=== PATIENT | male | born 1955 | race Two or more races ===

== ENCOUNTER → 2017-09-10 | Emergency (ER) | payer OTHER ==
[~2017-09-10] VITALS: Ht 185.4 cm; Wt 95.3 kg
[~2017-09-10] MED LIST: AMLODIPINE BESY10 MG; ATENOLOL100 MG; CLONAZEPAM0.5 MG; KETO10TA2 PO; LEVAQUIN750 MG PO; LOSARTAN-HCTZ1 EAC2; MEDROL DOSE PACK PO; NORVASC10 MG; ORPH100T PO; PHENAGIL TABLE1 EACH PO; TOPROL XL200 MG; TRAMADOL HCL-AP1 TAB PO
== END | disposition home or self-care (01) ==
LOC: ER 09:56
DX: R42 Dizziness and giddiness (principal); R51 Headache

== ENCOUNTER 2018-10-11 08:26 | Outpatient (CLI) | payer OTHER | END 2018-10-11 09:19 | disposition home or self-care (01) | LOC: RAD 08:26 | DX: J44.9 Chronic obstructive pulmonary disease, unspecified (principal) ==

== ENCOUNTER 2018-10-11 08:29 | Outpatient (CLI) | payer OTHER | END 2018-10-11 13:52 | disposition home or self-care (01) | LOC: LAB 08:29 | DX: I10 Essential (primary) hypertension (principal); E11.9 Type 2 diabetes mellitus without complications; E03.8 Other specified hypothyroidism; E78.2 Mixed hyperlipidemia; M81.0 Age-related osteoporosis without current pathological fracture; N40.0 Benign prostatic hyperplasia without lower urinary tract symptoms; N52.9 Male erectile dysfunction, unspecified ==

== ENCOUNTER 2018-11-07 12:37 | Outpatient (CLI) | payer OTHER | END 2018-11-07 13:12 | disposition home or self-care (01) | LOC: NUCLEAR 12:37 | DX: M81.0 Age-related osteoporosis without current pathological fracture (principal) ==

== ENCOUNTER 2019-08-21 08:12 | Outpatient (CLI) | payer OTHER | END 2019-08-21 08:20 | disposition home or self-care (01) | LOC: LAB 08:12 | DX: E11.9 Type 2 diabetes mellitus without complications (principal); E03.8 Other specified hypothyroidism; E78.2 Mixed hyperlipidemia; N40.0 Benign prostatic hyperplasia without lower urinary tract symptoms; M81.0 Age-related osteoporosis without current pathological fracture; I10 Essential (primary) hypertension ==

== ENCOUNTER 2019-12-02 08:05 | Outpatient (CLI) | payer OTHER | END 2019-12-02 09:05 | disposition home or self-care (01) | LOC: LAB 08:05 | DX: I10 Essential (primary) hypertension (principal); E11.9 Type 2 diabetes mellitus without complications; E03.8 Other specified hypothyroidism; E78.2 Mixed hyperlipidemia ==

== ENCOUNTER → 2021-01-02 07:54 | Outpatient (CLI) | payer OTHER | END | disposition home or self-care (01) | LOC: LAB 07:54 | PROVIDERS: ATTEND Internal Medicine Cardiovascular Disease | DX: E78.2 Mixed hyperlipidemia (principal); I10 Essential (primary) hypertension; E11.9 Type 2 diabetes mellitus without complications; E03.9 Hypothyroidism, unspecified; Z12.11 Encounter for screening for malignant neoplasm of colon; E55.9 Vitamin D deficiency, unspecified; N40.0 Benign prostatic hyperplasia without lower urinary tract symptoms ==

== ENCOUNTER 2021-05-15 08:05 | Outpatient (CLI) | payer OTHER | END 2021-05-15 08:10 | disposition home or self-care (01) | LOC: LAB 08:05 | PROVIDERS: ATTEND Internal Medicine Cardiovascular Disease | DX: I10 Essential (primary) hypertension (principal); E11.9 Type 2 diabetes mellitus without complications; E03.8 Other specified hypothyroidism; E78.2 Mixed hyperlipidemia ==

== ENCOUNTER 2021-05-19 08:00 | Outpatient (CLI) | payer OTHER | END 2021-05-19 08:30 | disposition home or self-care (01) | LOC: PPH VACUNA 08:00 | PROVIDERS: ATTEND Emergency Medicine Pediatric Emergency Medicine | DX: Z23 Encounter for immunization (principal) ==

== ENCOUNTER 2021-11-17 08:00 | Outpatient (CLI) | payer OTHER | END 2021-11-17 08:30 | disposition home or self-care (01) | LOC: PPH VACUNA 08:00 | PROVIDERS: ATTEND Emergency Medicine Pediatric Emergency Medicine | DX: Z23 Encounter for immunization (principal) ==

== ENCOUNTER 2021-11-17 08:23 | Outpatient (CLI) | payer OTHER | END 2021-11-17 08:24 | disposition home or self-care (01) | LOC: LAB 08:23 | PROVIDERS: ATTEND Internal Medicine Cardiovascular Disease | DX: E11.9 Type 2 diabetes mellitus without complications (principal); I10 Essential (primary) hypertension; E03.9 Hypothyroidism, unspecified; E78.2 Mixed hyperlipidemia; Z12.11 Encounter for screening for malignant neoplasm of colon; E55.9 Vitamin D deficiency, unspecified; N40.0 Benign prostatic hyperplasia without lower urinary tract symptoms ==

== ENCOUNTER 2021-12-01 11:01 | Outpatient (CLI) | payer OTHER | END 2021-12-01 11:06 | disposition home or self-care (01) | LOC: RAD 11:01 | PROVIDERS: ATTEND Internal Medicine Cardiovascular Disease | DX: M12.9 Arthropathy, unspecified (principal); M48.48XA Fatigue fracture of vertebra, sacral and sacrococcygeal region, initial encounter for fracture ==

== ENCOUNTER 2022-09-09 09:02 | Outpatient (CLI) | payer OTHER ==
[~2022-09-09 09:02] MED LIST changes: +ATENOLOL100 MG PO; +CAPSAICIN42.5 GM TOP; +INDOMETHACIN50 MG PO; +ZOVIRAX800 MG PO
== END 2022-09-09 15:03 | disposition home or self-care (01) ==
LOC: LAB 09:02
PROVIDERS: ATTEND Internal Medicine Cardiovascular Disease
DX: I10 Essential (primary) hypertension (principal); E11.9 Type 2 diabetes mellitus without complications; E03.9 Hypothyroidism, unspecified; E78.2 Mixed hyperlipidemia; Z12.11 Encounter for screening for malignant neoplasm of colon; N40.0 Benign prostatic hyperplasia without lower urinary tract symptoms; M10.9 Gout, unspecified; M19.90 Unspecified osteoarthritis, unspecified site; D64.9 Anemia, unspecified

== ENCOUNTER 2022-11-02 12:18 | Outpatient (CLI) | payer OTHER | END 2022-11-02 12:24 | disposition home or self-care (01) | LOC: SONOGRAMA 12:18 | PROVIDERS: ATTEND Internal Medicine | DX: M25.511 Pain in right shoulder (principal); M25.512 Pain in left shoulder ==

== ENCOUNTER 2022-12-29 08:57 | Outpatient (CLI) | payer OTHER | END 2022-12-29 09:06 | disposition home or self-care (01) | LOC: RAD 08:57 | PROVIDERS: ATTEND Internal Medicine | DX: R94.5 Abnormal results of liver function studies (principal); M54.2 Cervicalgia; M25.571 Pain in right ankle and joints of right foot; M25.541 Pain in joints of right hand; M25.542 Pain in joints of left hand ==

== ENCOUNTER 2023-03-12 08:27 | Outpatient (CLI) | payer OTHER | END 2023-03-12 08:28 | disposition home or self-care (01) | LOC: LAB 08:27 | PROVIDERS: ATTEND Internal Medicine Cardiovascular Disease | DX: E78.2 Mixed hyperlipidemia (principal); I10 Essential (primary) hypertension; E11.9 Type 2 diabetes mellitus without complications ==

== ENCOUNTER → 2023-08-19 07:50 | Outpatient (CLI) | payer OTHER ==
[2023-08-19 08:30] LABS: HEMOGLOBIN 14.3 g/dL (13-16.00); MEAN CORPUSCULAR HGB CONC 34.1 g/dl (32.0-36.0); PLATELET COUNT 272 K/uL (150-450); RED BLOOD COUNT 4.61 M/uL (4.00-6.00)
[2023-08-19 09:21] LABS: ALBUMIN 3.6 gm/dL (3.4-5.0); BILIRUBIN TOTAL 0.55 mg/dL (0.3-1.2); CALCIUM 9.4 mg/dL (8.5-10.1); CHOL HDL RATIO 3.6 (0-5.0); CREATININE SERUM 1.18 mg/dL (0.70-1.30); GFR 61.21; GLOBULINA 3.4 G/DL (2.4-3.5); POTASSIUM 4.18 mEq/L (3.5-5.1); PROSTATIC SPECIFIC ANTIGEN 1.02 NG/ML (0.010-4.00); T4 TOTAL 10.76 UG/DL (4.5-12.1); TSH 1.44 uIU/mL (0.358-3.74)
[2023-08-19 12:15] LABS: T3 TOTAL 1.35 ng/ml (0.846-2.02); VITAMIN D3 25 HYDROXY 58.16 ng/ml (30-120)
[2023-08-19 14:33] LABS: ob NEGATIVE (NEGATIVE)
== END | disposition home or self-care (01) ==
LOC: LAB 07:50
PROVIDERS: ATTEND Internal Medicine Cardiovascular Disease
DX: I10 Essential (primary) hypertension (principal); E11.9 Type 2 diabetes mellitus without complications; E03.9 Hypothyroidism, unspecified; E78.2 Mixed hyperlipidemia; Z12.11 Encounter for screening for malignant neoplasm of colon; N40.0 Benign prostatic hyperplasia without lower urinary tract symptoms

== ENCOUNTER 2024-04-05 08:18 | Outpatient (CLI) | payer OTHER ==
[2024-04-05 09:16] LABS: HEMATOCRIT 40.1 % (39.0-48.0); HEMOGLOBIN 13.7 g/dL (13-16.00); MEAN CELL VOLUME 87.4 fL (80.0-100.00); MEAN CORPUSCULAR HGB CONC 34.3 g/dl (32.0-36.0); PLATELET COUNT 268 K/uL (150-450); RED BLOOD COUNT 4.58 M/uL (4.00-6.00); RED CELL DISTRIBUTION WIDTH 15.2 % (11.5-14.5)
[2024-04-05 09:22] LABS: PH,URINE 7.5 (5.0-8.0); URINE APPEARANCE Clear; URINE BILIRRUBIN Negative (NEGATIVE); URINE BLOOD Negative; URINE COLOR Yellow; URINE GLUCOSE Negative (NEGATIVE); URINE KETONE Negative (NEGATIVE); URINE LEUKOCYTE Negative; URINE NITRATE Negative; URINE PROTEIN Trace (NEGATIVE); URINE UROBILINOGEN 0.2 E.U./dl
[2024-04-05 09:31] LABS: URINE BACTERIA 0 uL (0.0-1933); URINE EPITHELIAL CELLS 0.4 uL (0.0-38.8); URINE RBC 1.6 uL (0.0-20.8); URINE WBC 0.4 uL (0.0-23.2)
[2024-04-05 10:05] LABS: CALCIUM 9.4 mg/dL (8.5-10.1); CHOL HDL RATIO 2.3 (0-5.0); CREATININE SERUM 1.14 mg/dL (0.70-1.30); GFR 63.69; POTASSIUM 3.92 mEq/L (3.5-5.1)
== END 2024-04-05 08:19 | disposition home or self-care (01) ==
LOC: LAB 08:18
PROVIDERS: ATTEND Internal Medicine Cardiovascular Disease
DX: E78.2 Mixed hyperlipidemia (principal); I10 Essential (primary) hypertension; E11.9 Type 2 diabetes mellitus without complications

== ENCOUNTER 2024-08-10 08:07 | Outpatient (CLI) | payer OTHER ==
[2024-08-10 08:52] LABS: HEMATOCRIT 38.8 % (39.0-48.0); HEMOGLOBIN 13.5 g/dL (13-16.00); MEAN CELL VOLUME 86.7 fL (80.0-100.00); MEAN CORPUSCULAR HEMOGLOBIN 30.2 pg (27.00-32.0); MEAN CORPUSCULAR HGB CONC 34.8 g/dl (32.0-36.0); PLATELET COUNT 270 K/uL (150-450); RED BLOOD COUNT 4.48 M/uL (4.00-6.00); RED CELL DISTRIBUTION WIDTH 15.1 % (11.5-14.5)
[2024-08-10 09:21] LABS: URINE APPEARANCE Clear; URINE BILIRRUBIN Negative (NEGATIVE); URINE BLOOD Negative; URINE COLOR Yellow; URINE GLUCOSE Negative (NEGATIVE); URINE KETONE Negative (NEGATIVE); URINE LEUKOCYTE Negative; URINE NITRATE Negative; URINE PROTEIN Trace (NEGATIVE); URINE UROBILINOGEN 0.2 E.U./dl
[2024-08-10 09:26] LABS: URINE RBC 2.2 uL (0.0-20.8)
[2024-08-10 09:43] LABS: URINE BACTERIA 1.2 uL (0.0-1933); URINE EPITHELIAL CELLS 0.9 uL (0.0-38.8); URINE WBC 0.4 uL (0.0-23.2)
[2024-08-10 10:04] LABS: CALCIUM 9.4 mg/dL (8.5-10.1); CHOL HDL RATIO 2.2 (0-5.0); CREATININE SERUM 1.13 mg/dL (0.70-1.30); GFR 64.34; POTASSIUM 4.13 mEq/L (3.5-5.1); T4 TOTAL 10.38 UG/DL (4.5-12.1); TSH 1.37 uIU/mL (0.358-3.74)
== END 2024-08-10 08:08 | disposition home or self-care (01) ==
LOC: LAB 08:07
PROVIDERS: ATTEND Internal Medicine Cardiovascular Disease
DX: E11.9 Type 2 diabetes mellitus without complications (principal); E03.9 Hypothyroidism, unspecified; E78.2 Mixed hyperlipidemia; I10 Essential (primary) hypertension

== ENCOUNTER → 2024-11-30 08:01 | Outpatient (CLI) | payer OTHER ==
[2024-11-30 08:48] LABS: HEMATOCRIT 38.9 % (39.0-48.0); HEMOGLOBIN 13.5 g/dL (13-16.00); MEAN CELL VOLUME 85.9 fL (80.0-100.00); MEAN CORPUSCULAR HEMOGLOBIN 29.7 pg (27.00-32.0); MEAN CORPUSCULAR HGB CONC 34.6 g/dl (32.0-36.0); PLATELET COUNT 286 K/uL (150-450); RED BLOOD COUNT 4.53 M/uL (4.00-6.00); RED CELL DISTRIBUTION WIDTH 14.6 % (11.5-14.5)
[2024-11-30 09:09] LABS: URINE APPEARANCE Clear; URINE BILIRRUBIN Negative (NEGATIVE); URINE BLOOD Negative; URINE COLOR Yellow; URINE GLUCOSE Negative (NEGATIVE); URINE KETONE Negative (NEGATIVE); URINE LEUKOCYTE Negative; URINE NITRATE Negative; URINE PROTEIN 30 (NEGATIVE); URINE UROBILINOGEN 0.2 E.U./dl
[2024-11-30 09:14] LABS: URINE BACTERIA 4.8 uL (0.0-1933)
[2024-11-30 09:33] LABS: URINE EPITHELIAL CELLS 0.1 uL (0.0-38.8); URINE RBC 1.3 uL (0.0-20.8); URINE WBC 0.1 uL (0.0-23.2)
[2024-11-30 09:39] LABS: CALCIUM 9.5 mg/dL (8.5-10.1); CHOL HDL RATIO 2.5 (0-5.0); CREATININE SERUM 1.15 mg/dL (0.70-1.30); GFR 62.87; POTASSIUM 3.68 mEq/L (3.5-5.1)
[2024-11-30 11:38] LABS: ob NEGATIVE (NEGATIVE)
== END | disposition home or self-care (01) ==
LOC: LAB 08:01
PROVIDERS: ATTEND Internal Medicine Cardiovascular Disease
DX: E11.9 Type 2 diabetes mellitus without complications (principal); I10 Essential (primary) hypertension; E03.9 Hypothyroidism, unspecified; E78.2 Mixed hyperlipidemia; D64.0 Hereditary sideroblastic anemia; Z12.11 Encounter for screening for malignant neoplasm of colon; N40.0 Benign prostatic hyperplasia without lower urinary tract symptoms; E55.9 Vitamin D deficiency, unspecified; M81.0 Age-related osteoporosis without current pathological fracture

== ENCOUNTER 2025-02-27 08:19 | Outpatient (CLI) | payer OTHER ==
[2025-02-27 08:55] LABS: BASO % 0.9 % (0.1-1.2); EOS # 0.87 (0.04-0.54); EOS % 8.7 % (0.7-7.0); LYMPH # 1.89 (1.18-3.74); LYMPH % 18.9 % (19.3-53.1); MEAN PLATELET VOLUME 10.60 fl (9.4-12.4); MONO # 1.05 (0.24-0.82); MONO % 10.5 % (4.7-12.5); NEUT # 6.05 (1.56-6.13); NEUT % 60.7 % (34.0-71.1); RED CELL DISTRIBUTION WIDTH 14.2 % (11.6-14.4)
[2025-02-27 09:35] LABS: URINE APPEARANCE Clear; URINE BILIRRUBIN Negative (NEGATIVE); URINE BLOOD Negative; URINE COLOR Yellow; URINE GLUCOSE Negative (NEGATIVE); URINE KETONE Negative (NEGATIVE); URINE LEUKOCYTE Negative; URINE NITRATE Negative; URINE UROBILINOGEN 0.2 E.U./dl
[2025-02-27 09:39] LABS: URINE BACTERIA 8.3 uL (0.0-1933); URINE EPITHELIAL CELLS 3.3 uL (0.0-38.8); URINE RBC 4.5 uL (0.0-20.8)
[2025-02-27 09:44] LABS: BUN CREA RATIO 19.0 (7.0-25.0); CHOL HDL RATIO 2.4 (0-5.0); CREATININE SERUM 1.24 mg/dL (0.70-1.30); GFR 57.63; GLUCOSE FASTING 114.0 mg/dL (65-100); HDL 55.0 mg/dl (40-60); LDL 54.0 mg/dl (0-130); OSMOLALITY SERUM 288.0 MOSM/KG (275-295); T4 TOTAL 9.2 UG/DL (4.5-12.1); TSH 1.29 uIU/mL (0.358-3.74); VLDL 20.0 (0-39)
[2025-02-27 09:51] LABS: URINE CAST 1.02 uL (0.0-1.40); URINE PROTEIN 100 (NEGATIVE); URINE WBC 1.6 uL (0.0-23.2)
== END 2025-02-27 08:22 | disposition home or self-care (01) ==
LOC: LAB 08:19
PROVIDERS: ATTEND Internal Medicine Cardiovascular Disease
DX: E11.9 Type 2 diabetes mellitus without complications (principal); I10 Essential (primary) hypertension; E03.9 Hypothyroidism, unspecified; E78.2 Mixed hyperlipidemia

== ENCOUNTER 2025-06-01 07:45 | Outpatient (CLI) | payer OTHER ==
[2025-06-01 08:32] LABS: BASO % 0.9 % (0.1-1.2); EOS # 0.84 (0.04-0.54); EOS % 8.7 % (0.7-7.0); LYMPH # 2.20 (1.18-3.74); LYMPH % 22.8 % (19.3-53.1); MEAN PLATELET VOLUME 10.90 fl (9.4-12.4); MONO # 1.10 (0.24-0.82); MONO % 11.4 % (4.7-12.5); NEUT # 5.41 (1.56-6.13); NEUT % 56.0 % (34.0-71.1); RED CELL DISTRIBUTION WIDTH 14.5 % (11.6-14.4)
[2025-06-01 08:35] LABS: URINE APPEARANCE Clear; URINE BILIRRUBIN Negative (NEGATIVE); URINE BLOOD Negative; URINE COLOR Yellow; URINE GLUCOSE Negative (NEGATIVE); URINE KETONE Negative (NEGATIVE); URINE LEUKOCYTE Negative; URINE NITRATE Negative; URINE PROTEIN Trace (NEGATIVE); URINE UROBILINOGEN 0.2 E.U./dl
[2025-06-01 08:37] LABS: URINE EPITHELIAL CELLS 2.1 uL (0.0-38.8)
[2025-06-01 08:38] LABS: URINE BACTERIA 3.5 uL (0.0-1933); URINE CAST 0.00 uL (0.0-1.40); URINE RBC 1.4 uL (0.0-20.8); URINE WBC 0.6 uL (0.0-23.2)
[2025-06-01 09:41] LABS: BUN CREA RATIO 17.0 (7.0-25.0); CHOL HDL RATIO 2.8 (0-5.0); CREATININE SERUM 1.36 mg/dL (0.70-1.30); GFR 51.8; GLUCOSE FASTING 123.0 mg/dL (65-100); HDL 53.0 mg/dl (40-60); LDL 66.0 mg/dl (0-130); OSMOLALITY SERUM 281.0 MOSM/KG (275-295); T4 TOTAL 7.92 UG/DL (4.5-12.1); TSH 1.27 uIU/mL (0.358-3.74); VLDL 31.0 (0-39)
== END 2025-06-01 07:49 | disposition home or self-care (01) ==
LOC: LAB 07:45
PROVIDERS: ATTEND Internal Medicine Cardiovascular Disease
DX: E03.9 Hypothyroidism, unspecified (principal); E78.2 Mixed hyperlipidemia; E11.9 Type 2 diabetes mellitus without complications; I10 Essential (primary) hypertension

== ENCOUNTER 2025-06-18 11:46 | Outpatient (CLI) | payer OTHER | END 2025-06-18 11:55 | disposition home or self-care (01) | LOC: MRI 11:46 | PROVIDERS: ATTEND Physical Medicine & Rehabilitation | DX: S66.197A Other injury of flexor muscle, fascia and tendon of left little finger at wrist and hand level, initial encounter (principal) | CPT/HCPCS: 73221 ==

== ENCOUNTER 2025-07-12 07:01 | Outpatient (CLI) | payer OTHER | END 2025-07-12 07:02 | disposition home or self-care (01) | LOC: NUCLEAR 07:01 | PROVIDERS: ATTEND Physical Medicine & Rehabilitation | DX: M06.9 Rheumatoid arthritis, unspecified (principal); M13.0 Polyarthritis, unspecified | CPT/HCPCS: 78315; A9503 ==